=== PATIENT | female | born 1990 | race African-American/Black ===

== ENCOUNTER 2020-09-23 04:40 | Emergency (ER) | payer SELFPAY | END 2020-09-23 05:01 | LOC: ERS 04:40 | DX: Z04.1 Encounter for examination and observation following transport accident (principal); E11.9 Type 2 diabetes mellitus without complications; F17.210 Nicotine dependence, cigarettes, uncomplicated; V89.2XXA Person injured in unspecified motor-vehicle accident, traffic, initial encounter | CPT/HCPCS: 99283 ==